=== PATIENT | male | born 1975 | race Caucasian/White ===

== ENCOUNTER 2017-03-26 08:37 | Day surgery (SDC) | payer MEDICARE ==
[~2017-03-26] VITALS: Ht 185.4 cm; Wt 102.1 kg
[~2017-03-26 08:37] MED LIST: BOOST HIGH PRO240 ML PO; CIPRO 500MG TA500 MG PO; COMPAZINE 110 MG/TAB PO; DAZIDOX10 MG PO; DECADRON 4MG TAB4 MG PO; PERCOCET 325 MG1 TA2 PO; PRILOSEC 20MG20 MG PO; REGLAN 10MG10 MG/TAB PO; VOLTAREN GEL 1%1 TU TP; ZOFRAN ODT4 MG PO
[2017-03-26] MEDS ORDERED: NEURONTIN600 MG/TAB PO (09:27)
[2017-03-26] MEDS ORDERED: ULTRAM 50MG TAB50 MG PO (09:28)
[2017-03-26] MEDS ORDERED: ZOLOFT 50MG50 MG PO (09:29)
[2017-03-26] MEDS ORDERED: ASPIRIN 32325 MG/TAB PO (09:31)
[2017-03-26 09:35] VITALS: BP 118/74; PULSE 81; TEMP 98.1
[2017-03-26 11:55] VITALS: BP 103/73; PULSE 88
[2017-03-26 12:10] VITALS: BP 105/78; PULSE 85
[2017-03-26 12:27] VITALS: BP 112/73; PULSE 94
== END 2017-03-26 12:25 | disposition home or self-care (01) ==
LOC: SDCO 08:37
DX: Z12.11 Encounter for screening for malignant neoplasm of colon (principal); K29.50 Unspecified chronic gastritis without bleeding; K22.8 Other specified diseases of esophagus; K31.84 Gastroparesis; K25.7 Chronic gastric ulcer without hemorrhage or perforation; K57.30 Diverticulosis of large intestine without perforation or abscess without bleeding; K64.0 First degree hemorrhoids; Z85.01 Personal history of malignant neoplasm of esophagus; Z85.47 Personal history of malignant neoplasm of testis; Z92.21 Personal history of antineoplastic chemotherapy; Z80.0 Family history of malignant neoplasm of digestive organs
CPT/HCPCS: 43239; G0105; OP; J2250; J3010; J7030

== ENCOUNTER → 2017-06-25 | Outpatient (CLI) | payer MEDICARE ==
[~2017-06-25] VITALS: Ht 185.4 cm; Wt 98.6 kg
[~2017-06-25] MED LIST changes: +ASPIRIN 32325 MG/TAB PO; +NEURONTIN600 MG/TAB PO; +ULTRAM 50MG TAB50 MG PO; +ZOLOFT 50MG50 MG PO
[2017-06-25 07:08] VITALS: BP 113/66; PULSE 102
== END ==
LOC: COL.RAD 06:54
DX: C15.5 Malignant neoplasm of lower third of esophagus (principal); R91.1 Solitary pulmonary nodule

== ENCOUNTER → 2017-07-09 | Outpatient (CLI) | payer MEDICARE | LOC: MHCPAIN 10:02 | DX: G89.29 Other chronic pain (principal); M79.2 Neuralgia and neuritis, unspecified; M79.1 Myalgia; F17.210 Nicotine dependence, cigarettes, uncomplicated | CPT/HCPCS: G0463 ==

== ENCOUNTER 2017-07-30 09:57 | Day surgery (SDC) | payer MEDICARE ==
[~2017-07-30] VITALS: Ht 185.4 cm; Wt 98.5 kg
[2017-07-30] MEDS ORDERED: PAMELOR 25MG25 MG PO (10:34)
[2017-07-30 10:44] VITALS: BP 112/63; PULSE 102; TEMP 97.5
[2017-07-30 12:20] VITALS: BP 108/64; PULSE 90
[2017-07-30 12:35] VITALS: BP 97/67; PULSE 94
[2017-07-30 12:50] VITALS: BP 99/57; PULSE 92
== END 2017-07-30 13:03 | disposition home or self-care (01) ==
LOC: SDCO 09:57
DX: C78.00 Secondary malignant neoplasm of unspecified lung (principal); Z85.01 Personal history of malignant neoplasm of esophagus; K22.8 Other specified diseases of esophagus; K31.84 Gastroparesis; Z92.21 Personal history of antineoplastic chemotherapy; Z92.3 Personal history of irradiation; Z85.47 Personal history of malignant neoplasm of testis; Z90.49 Acquired absence of other specified parts of digestive tract; Z90.79 Acquired absence of other genital organ(s); K21.9 Gastro-esophageal reflux disease without esophagitis
CPT/HCPCS: OP; J2250; J2405; J3010; J7030

== ENCOUNTER → 2017-08-27 | Outpatient (CLI) | payer MEDICARE ==
[~2017-08-27] MED LIST changes: +PAMELOR 25MG25 MG PO
== END ==
LOC: MHCPAIN 09:28
DX: G89.29 Other chronic pain (principal); M79.2 Neuralgia and neuritis, unspecified; M79.1 Myalgia
CPT/HCPCS: G0463

== ENCOUNTER 2017-10-04 08:52 | Day surgery (SDC) | payer MEDICARE ==
[~2017-10-04] VITALS: Ht 185.4 cm; Wt 101.2 kg
[~2017-10-04 08:52] MED LIST changes: -PAMELOR 25MG25 MG PO; +PAMELOR50 MG PO; +ZOLOFT 100MG100 MG PO; -ZOLOFT 50MG50 MG PO
[2017-10-04] MEDS ORDERED: XANAX 0.5MG0.5 MG PO (09:22)
[2017-10-04] MEDS ORDERED: ASPERCREME1 EACH TP (09:23)
[2017-10-04] MEDS ORDERED: DAZIDOX10 MG PO (09:23)
[2017-10-04] MEDS ORDERED: CHANTIX 0.5MG0.5 MG PO (09:24)
[2017-10-04 09:50] VITALS: BP 109/64; PULSE 92; TEMP 97.9
[2017-10-04 12:33] VITALS: BP 108/69; PULSE 90; TEMP 98
[2017-10-04 12:48] VITALS: BP 119/68; PULSE 90
[2017-10-04 13:03] VITALS: BP 112/64; PULSE 98
[2017-10-04 13:07] VITALS: BP 117/77; PULSE 89
== END 2017-10-04 13:26 | disposition home or self-care (01) ==
LOC: SDCO 08:52
DX: C78.02 Secondary malignant neoplasm of left lung (principal); Z85.01 Personal history of malignant neoplasm of esophagus; K21.0 Gastro-esophageal reflux disease with esophagitis; K22.70 Barrett's esophagus without dysplasia; Z85.47 Personal history of malignant neoplasm of testis; Z92.3 Personal history of irradiation; Z92.21 Personal history of antineoplastic chemotherapy; Z80.9 Family history of malignant neoplasm, unspecified; Z90.79 Acquired absence of other genital organ(s); E16.2 Hypoglycemia, unspecified; F17.210 Nicotine dependence, cigarettes, uncomplicated
CPT/HCPCS: C1788; J0330; J0690; J1644; J2270; J2405; J2704; J3010; J7120

== ENCOUNTER → 2017-10-22 | Outpatient (CLI) | payer MEDICARE ==
[~2017-10-22] MED LIST changes: +ASPERCREME1 EACH TP; +CHANTIX 0.5MG0.5 MG PO; +XANAX 0.5MG0.5 MG PO
== END ==
LOC: COL.VAS 08:15
DX: C15.5 Malignant neoplasm of lower third of esophagus (principal)

== ENCOUNTER 2018-01-11 09:39 | Emergency (ER) | payer MEDICARE ==
[~2018-01-11] VITALS: Ht 185.4 cm; Wt 90.9 kg
[2018-01-11 09:44] VITALS: TEMP 98.2
[2018-01-11 10:44] LABS: BASO # 0.1 (0.0-0.2); BASO % 0.8 % (0.0-2.0); EOS # 0.2 (0.0-0.7); EOS % 3.3 % (0-4.0); GRAN # 3.6 (1.4-6.5); HEMOGLOBIN 12.1 g/dl (13.5-18.0); LYMPH # 2.2 (1.2-3.4); LYMPH % 35.2 % (20.0-51.0); MEAN CELL VOLUME 90 fl (80.0-100.0); MEAN CORPUSCULAR HEMOGLOBIN 30 pg (27.0-31.0); MEAN CORPUSCULAR HGB CONC 33 g/dl (33.0-37.0); MEAN PLATELET VOLUME 11.2 fl (7.4-10.4); MONO # 0.2 (0.1-0.6); MONO % 3.5 % (1.7-9.3); PLATELET COUNT 175 K/mm3 (130-400); RED BLOOD COUNT 4.05 M/mm3 (4.20-5.60); REDCELL DISTRIBUTION WIDTH-CV 18.8 % (11.5-14.5)
[2018-01-11 10:45] LABS: HEMATOCRIT 36.5 % (42.0-52.0)
[2018-01-11 10:59] LABS: ALANINE AMINOTRANSFERASE 52 U/L (21-72); ALBUMIN 3.8 gm/dL (3.5-5.0); ALKALINE PHOSPHATASE 89 U/L (50-136); ANION GAP 8 mmol/L (7-16); AST,SGOT 37 U/L (15-37); BILIRUBIN,TOTAL 0.9 mg/dL (0.0-1.0); BLOOD UREA NITROGEN 17 mg/dL (9-20); C-REACTIVE PROTEIN 0.8 mg/dL (0.0-0.9); CARBON DIOXIDE 29 mmol/L (22-30); CHLORIDE 101 mmol/L (98-107); CREATININE, serum 0.82 mg/dL (0.66-1.25); GLUCOSE 94 mg/dL (74-106); POTASSIUM 3.7 mmol/L (3.4-5.0); SODIUM 138 mmol/L (137-145); TOTAL PROTEIN 6.7 gm/dL (6.4-8.2)
[2018-01-11 11:00] LABS: LIPASE < 10 U/L (23-300)
[2018-01-11 14:00] VITALS: BP 98/60; PULSE 67
== END 2018-01-11 14:00 | disposition home or self-care (01) ==
LOC: COL.ER 09:39
PROVIDERS: Emergency Medicine
DX: R10.13 Epigastric pain (principal); C15.9 Malignant neoplasm of esophagus, unspecified; C78.00 Secondary malignant neoplasm of unspecified lung; F17.210 Nicotine dependence, cigarettes, uncomplicated; Z98.890 Other specified postprocedural states; Z85.47 Personal history of malignant neoplasm of testis
CPT/HCPCS: C9113; J1170; J2405; J7030

== ENCOUNTER → 2018-02-07 | Outpatient (CLI) | payer MEDICARE | LOC: COL.RAD 08:59 | DX: C15.9 Malignant neoplasm of esophagus, unspecified (principal); C79.9 Secondary malignant neoplasm of unspecified site; K80.20 Calculus of gallbladder without cholecystitis without obstruction ==

== ENCOUNTER → 2018-04-11 | Day surgery (SDC) | payer MEDICARE ==
[~2018-04-11] VITALS: Ht 182.9 cm; Wt 84.0 kg
[~2018-04-11] MED LIST changes: +CARAFATE 1GM1 G PO; +LYRICA 150MG C150 MG PO; +MS CONTIN 115 MG/TAB PO; +PREDNISONE20 MG PO
[2018-04-11 12:39] VITALS: BP 96/54; PULSE 88; TEMP 98.5
[2018-04-11 17:25] VITALS: BP 106/54; PULSE 99; TEMP 98.1
[2018-04-11 17:40] VITALS: BP 98/67; PULSE 96
[2018-04-11 17:51] VITALS: TEMP 98.9
[2018-04-11 17:55] VITALS: BP 106/69; PULSE 89
[2018-04-11 18:10] VITALS: BP 100/59; PULSE 95
== END ==
LOC: SDCO 11:44
DX: K80.10 Calculus of gallbladder with chronic cholecystitis without obstruction (principal); C15.5 Malignant neoplasm of lower third of esophagus; C78.02 Secondary malignant neoplasm of left lung; Z79.899 Other long term (current) drug therapy; Z85.47 Personal history of malignant neoplasm of testis; F17.210 Nicotine dependence, cigarettes, uncomplicated; K21.9 Gastro-esophageal reflux disease without esophagitis; J44.9 Chronic obstructive pulmonary disease, unspecified; G89.29 Other chronic pain; G62.9 Polyneuropathy, unspecified; R73.9 Hyperglycemia, unspecified; Z95.828 Presence of other vascular implants and grafts
CPT/HCPCS: J0690; J1170; J2250; J2405; J2704; J2765; J3010; J7120